=== PATIENT | female | born 1940 | race Caucasian/White ===

== ENCOUNTER → 2023-12-01 09:11 | Outpatient (REF) | payer MEDICARE, OTHER, SELFPAY | LOC: RAD 09:11 | PROVIDERS: ATTENDING PHYSICIAN Physician Assistant Medical | DX: E78.2 Mixed hyperlipidemia (principal); Z78.0 Asymptomatic menopausal state; M19.90 Unspecified osteoarthritis, unspecified site | CPT/HCPCS: 77080 ==

== ENCOUNTER → 2025-02-21 14:35 | Outpatient (REF) | payer MEDICARE, OTHER, SELFPAY | LOC: RCS 14:35 | PROVIDERS: ATTENDING PHYSICIAN Internal Medicine; FAMILY PHYSICIAN Physician Assistant Medical | DX: I11.9 Hypertensive heart disease without heart failure (principal); I44.7 Left bundle-branch block, unspecified; I47.29 Other ventricular tachycardia; I35.0 Nonrheumatic aortic (valve) stenosis | CPT/HCPCS: 93306 ==